=== PATIENT | female | born 1980 | race Caucasian/White ===

== ENCOUNTER 2024-10-20 03:33 | Emergency (ER) | payer SELFPAY ==
[2024-10-20 03:37] VITALS: BP 140/82; PULSE 59; RESP 18; TEMP 36.4; O2SAT 100
--- NOTE | 2024-10-20 06:30 | ED_ITS ---
Documented by User: ELMIRA Florez STDNT 10/20/24 09:29 HPI - General Adult 2 General: Chief complaint: General Medical Stated complaint: NOT FEELING WELL Time Seen by Provider: 10/20/24 05:39 History of Present Illness: Erica a 44-year-old female without significant past medical history presenting today for multiple concerns. She reports dizziness and palpitations that occur intermittently at rest. Patient's initial chief complaint of chest pain when being triaged, however on my encounter with her she denies having any chest pain and states it feels more like her heart is skipping a beat. she recently became homeless about 6 weeks ago and has trouble securing food. She states that she had a cyst on her cervix that drained spontaneously about 3 weeks ago and is continuing to hurt, she wonders if this could be a source of her pain, it is no longer draining. Also states that she has a knot in her lower abdomen over the right side which is now gone, and feels like there is more fullness over her left lower quadrant. Denies vomiting or diarrhea. Endorses subjective fever and chills for several weeks but is not sure if this is secondary to being outside sometimes or not. Associated symptoms: Reports palpitations; Deny chest pain, dyspnea, headache(s) or vomiting Related Data Allergies Allergy/AdvReac Type Severity Reaction Status Date / Time No Known Allergies Allergy Verified 10/20/24 03:44 Review of Systems 2 Const: Reports: fever(s) (subjective) and chills Eyes: Denies: change in vision Card: Reports: palpitations and lightheadedness; Denies: chest pain or swelling of feet/ankles Resp: Denies: dyspnea or productive cough GI: Reports: abdominal pain (suprapubic pain ); Denies: vomiting : Denies: dysuria or urinary urgency Neuro: Denies: headache(s) [facility] ED 2 Female Reproductive History: Date of last menstrual period: 10/07/24 Physical Exam 2 Const: COMMON NORMALS: no acute distress, patient oriented x3 and alert G ENERAL APPEARANCE: cooperative and comfortable ORIENTATION/CONSCIOUSNESS: Yes oriented to person HENMT: COMMON NORMALS: normocephalic and atraumatic HEAD & SCALP: n ormocephalic and atraumatic Eye: COMMON NORMALS: Equal, round and reactive pupils present, EOMs intact bilaterally and conjunctivae normal CONJUNCTIVA: Yes conjunctivae normal P UPIL: Yes Equal, round and reactive pupils present Chest: CHEST: Yes Symmetrical chest wall rise Resp: COMMON NORMALS: clear to auscultation bilaterally EFFORT & INSPECTION: Yes able to speak in complete sentences and No respiratory distress AUSCULTATION: clear to auscultation bilaterally, no crackles and no wheezes Cardio: COMMON NORMALS: regular rate, regular rhythm, S1 normal heart sound present, S2 normal heart sound present and No murmurs present (Cardio) RATE: regular rate RHYTHM: regular rhythm HEART SOUNDS: S1 normal heart sound present and S2 normal heart sound present GI: COMMON NORMALS: Soft to palpation AUSCULTATION: Yes normoactive bowel sounds PALPATION: Yes Soft to palpation and No Tenderness to palpation present (GI) : COMMON NORMALS: Yes no CVA tenderness BLADDER/KIDNEY EXAM: No bladder normal to palpation and Yes no CVA tenderness BIMANUAL EXAM - VAGINA & UTERUS: No bladder normal to palpation Back/Pelvis: COMMON NORMALS: no CVA tenderness Neuro: COMMON NORMALS: patient oriented x3, moves all extremities and no focal motor deficits SENSORIUM/ORIENTATION: Yes alert and Yes oriented to person Course 2 Vital Signs: Vital signs: Vital Signs Temperature 97.6 F 10/20/24 03:37 Pulse Rate 56 L 10/20/24 10:07 Respiratory Rate 18 10/20/24 03:37 Blood Pressure 126/84 10/20/24 10:07 Pulse Oximetry 99 10/20/24 10:07 Oxygen Delivery Me thod Room Air 10/20/24 03:37 [facility] - General Adult Medical Decision Making Erica a 44-year-old female without significant past medical history presenting today for multiple complaints including intermittent palpitations, suprapubic pain, dysuria, and vaginal discharge. Vitals overall unremarkable, afebrile. No leukocytosis, CMP unremarkable. Beta-hCG negative. Chest x-ray unremarkable. EKG without acute abnormalities. Urinalysis appears infectious and was also positive for trichomonas. She was given 1 g Rocephin while here and discharged on Levaquin and Flagyl. Patient amenable to discharge. Discussed return precautions. Encouraged establishing care with a PCP to follow-up. Lab Data 10/20/24 07:41 10/20/24 07:41 Radiology Impressions Chest X-Ray 10/20/24 06:35 IMPRESSION: No acute findings. Laboratory Results WBC 7.52 10^3/uL (3.29-11.43) 10/20/24 07:41 RBC 4.27 10^6/uL (3.85-5.65) 10/20/24 07:41 Hgb 12.80 g/dL (11.27-16.99) 10/20/24 07:41 Hct 39.0 % (36-47) 10/20/24 07:41 MCV 91.3 fl (85-98) 10/20/24 07:41 MCH 30.0 pg (27-33) 10/20/24 07:41 MCHC 32.8 g/dL (30-55) 10/20/24 07:41 RDW 14.6 % (12.1-15.1) 10/20/24 07:41 Plt Count 363 10^3/cmm (157-399) 10/20/24 07:41 MPV 8.9 fL (7.4-10.4) 10/20/24 07:41 Neut % (Auto) 70.4 % 10/20/24 07:41 Lymph % (Auto) 22.9 % 10/20/24 07:41 [place] % (Auto) 4.9 % 10/20/24 07:41 Eos % (Auto) 0.7 % 10/20/24 07:41 Baso % (Auto) 0.8 % 10/20/24 07:41 Neut # (Auto) 5.30 10^3/uL (1.8-7.7) 10/20/24 07:41 Lymph # (Auto) 1.7 10^3/uL (0.8-4.8) 10/20/24 07:41 [place] # (Auto) 0.4 10^3/uL (0.2-0.9) 10/20/24 07:41 Eos # (Auto) 0.1 10^3/uL (0.0-0.8) 10/20/24 07:41 Baso # (Auto) 0.1 10^3/uL (0.0-0.1) 10/20/24 07:41 Nucleated RBC % (auto) 0 % 10/20/24 07:41 Nucleated RBCs # 0.0 /100WBC 10/20/24 07:41 Sodium 136 mmol/L (136-145) 10/20/24 07:41 Potassium 3.9 mmol/L (3.5-5.1) 10/20/24 07:41 Chloride 101 mmol/L (98-107) 10/20/24 07:41 Carbon Dioxide 24 mmol/L (22-29) 10/20/24 07:41 Anion Gap 14.9 (5-19) 10/20/24 07:41 BUN 9 mg/dL (6-20) 10/20/24 07:41 Creatinine 0.6 mg/dL (0.5-0.9) 10/20/24 07:41 GFR Calculation 108.1 mL/min (90-130) 10/20/24 07:41 Glucose 87 mg/dL (65-115) 10/20/24 07:41 Calculated Osmolality 280 mOsm/kg (285-295) L 10/20/24 07:41 Calcium 9.2 mg/dL (8.5-10.5) 10/20/24 07:41 Total Bilirubin 0.2 mg/dL (0.15-1.2) 10/20/24 07:41 AST 14 U/L (0-32) 10/20/24 07:41 ALT 8 U/L (0-33) 10/20/24 07:41 Alkaline Phosphatase 71 U/L (35-105) 10/20/24 07:41 Total Protein 6.6 g/dL (6.6-8.7) 10/20/24 07:41 Albumin 3.9 g/dL (3.5-5.2) 10/20/24 07:41 Globulin 2.7 g/dL (1.3-4.6) 10/20/24 07:41 HCG, Qual Negative (Negative) 10/20/24 06:41 Urine Color Yellow (Yellow) 10/20/24 06:41 Urine Appearance Turbid (CLEAR) A 10/20/24 06:41 Urine pH 6.5 (5-7) 10/20/24 06:41 Ur Specific [place] 1.004 (1.005-1.030) L 10/20/24 06:41 Urine Protein 1+ (Negative) A 10/20/24 06:41 Urine Glucose (UA) Negative (Normal) 10/20/24 06:41 Urine Ketones Negative (Negative) 10/20/24 06:41 Urine Blood 1+ (Negative) A 10/20/24 06:41 Urine Nitrate Negative (Negative) 10/20/24 06:41 Urine Bilirubin Negative (Negative) 10/20/24 06:41 Urine Urobilinogen 0.2 mg/dL (Negative) 10/20/24 06:41 Ur Leukocyte Esterase 2+ (Negative) A 10/20/24 06:41 Urine RBC 6-10 /hpf (0-2) 10/20/24 06:41 Urine WBC >100 /hpf (0-5) H 10/20/24 06:41 Ur Squamous Epith Cells >100 /hpf (0-5) H 10/20/24 06:41 Amorphous Sediment Not Reportable 10/20/24 06:41 Urine Bacteria 4+ /hpf (NONE) H 10/20/24 06:41 Hyaline Casts 13.42 /lpf 10/20/24 06:41 Urine Trichomonas 2+ /hpf H 10/20/24 06:41 C. trachomatis (PCR) Not detected 10/20/24 09:48 N. gonorrhoeae (PCR) Not detected 10/20/24 09:48 Discharge Plan Discharge Patient Disposition: Home Clinical Impression: Infection due to trichomonas, Exposure to STD Condition: Stable Discharge Orders: Discharge ED (Routine); Ordered 10/20/24 Ordered By: Waqas Dinero Discharge Diet: Usual diet Discharge Activity: Increase activity as tolerated Patient Instructions: Opioid Safety, Pain Management Activity Restrictions/Additional Instructions: Thank you for choosing [facility] for your healthcare needs today. It is very important that you follow up as instructed or that you return to the Emergency Department should you have concerns or if your condition changes or worsens in any way. You are seen in the emergency room with complaints of vaginal discharge. On testing you are found to have an infection called trichomonas. You are given antibiotics to treat for this as well as other potential infections cultures are pending on those. Complete the full course of antibiotics. Recommend that you establish with a primary care doctor if you have any worsening or changes symptoms return. Print Language: East Timorese Coding Level of Care Code ED Tie Hacker for Chg Fwd Documented by User: Waqas Dinero DO 10/30/24 05:50 HPI - General Adult 2 General: Chief complaint: General Medical Stated complaint: NOT FEELING WELL Time Seen by Provider: 10/20/24 05:39 Related Data Allergies Allergy/AdvReac Type Severity Reaction Status Date / Time No Known Allergies Allergy Verified 10/20/24 03:44 Course 2 Vital Signs: Vital signs: Vital Signs Temperature 97.6 F 10/20/24 03:37 Pulse Rate 56 L 10/20/24 10:07 Respiratory Rate 18 10/20/24 03:37 Blood Pressure 126/84 10/20/24 10:07 Pulse Oximetry 99 10/20/24 10:07 Oxygen Delivery Me thod Room Air 10/20/24 03:37 MDM - General Adult Medical Decision Making Erica a 44-year-old female without significant past medical history presenting today for multiple complaints including intermittent palpitations, suprapubic pain, dysuria, and vaginal discharge. Vitals overall unremarkable, afebrile. No leukocytosis, CMP unremarkable. Beta-hCG negative. Chest x-ray unremarkable. EKG without acute abnormalities. Urinalysis appears infectious and was also positive for trichomonas. She was given 1 g Rocephin while here and discharged on Levaquin and Flagyl. Patient amenable to discharge. Discussed return precautions. Encouraged establishing care with a PCP to follow-up. Patient seen and evaluated in conjunction with Dr. Lyon. Agree with history assessment and plan. Lab Data 10/20/24 07:41 10/20/24 07:41 Radiology Impressions Chest X-Ray 10/20/24 06:35 IMPRESSION: No acute findings. Laboratory Results WBC 7.52 10^3/uL (3.29-11.43) 10/20/24 07:41 RBC 4.27 10^6/uL (3.85-5.65) 10/20/24 07:41 Hgb 12.80 g/dL (11.27-16.99) 10/20/24 07:41 Hct 39.0 % (36-47) 10/20/24 07:41 MCV 91.3 fl (85-98) 10/20/24 07:41 MCH 30.0 pg (27-33) 10/20/24 07:41 MCHC 32.8 g/dL (30-55) 10/20/24 07:41 RDW 14.6 % (12.1-15.1) 10/20/24 07:41 Plt Count 363 10^3/cmm (157-399) 10/20/24 07:41 MPV 8.9 fL (7.4-10.4) 10/20/24 07:41 Neut % (Auto) 70.4 % 10/20/24 07:41 Lymph % (Auto) 22.9 % 10/20/24 07:41 [place] % (Auto) 4.9 % 10/20/24 07:41 Eos % (Auto) 0.7 % 10/20/24 07:41 Baso % (Auto) 0.8 % 10/20/24 07:41 Neut # (Auto) 5.30 10^3/uL (1.8-7.7) 10/20/24 07:41 Lymph # (Auto) 1.7 10^3/uL (0.8-4.8) 10/20/24 07:41 [place] # (Auto) 0.4 10^3/uL (0.2-0.9) 10/20/24 07:41 Eos # (Auto) 0.1 10^3/uL (0.0-0.8) 10/20/24 07:41 Baso # (Auto) 0.1 10^3/uL (0.0-0.1) 10/20/24 07:41 Nucleated RBC % (auto) 0 % 10/20/24 07:41 Nucleated RBCs # 0.0 /100WBC 10/20/24 07:41 Sodium 136 mmol/L (136-145) 10/20/24 07:41 Potassium 3.9 mmol/L (3.5-5.1) 10/20/24 07:41 Chloride 101 mmol/L (98-107) 10/20/24 07:41 Carbon Dioxide 24 mmol/L (22-29) 10/20/24 07:41 Anion Gap 14.9 (5-19) 10/20/24 07:41 BUN 9 mg/dL (6-20) 10/20/24 07:41 Creatinine 0.6 mg/dL (0.5-0.9) 10/20/24 07:41 GFR Calculation 108.1 mL/min (90-130) 10/20/24 07:41 Glucose 87 mg/dL (65-115) 10/20/24 07:41 Calculated Osmolality 280 mOsm/kg (285-295) L 10/20/24 07:41 Calcium 9.2 mg/dL (8.5-10.5) 10/20/24 07:41 Total Bilirubin 0.2 mg/dL (0.15-1.2) 10/20/24 07:41 AST 14 U/L (0-32) 10/20/24 07:41 ALT 8 U/L (0-33) 10/20/24 07:41 Alkaline Phosphatase 71 U/L (35-105) 10/20/24 07:41 Total Protein 6.6 g/dL (6.6-8.7) 10/20/24 07:41 Albumin 3.9 g/dL (3.5-5.2) 10/20/24 07:41 Globulin 2.7 g/dL (1.3-4.6) 10/20/24 07:41 HCG, Qual Negative (Negative) 10/20/24 06:41 Urine Color Yellow (Yellow) 10/20/24 06:41 Urine Appearance Turbid (CLEAR) A 10/20/24 06:41 Urine pH 6.5 (5-7) 10/20/24 06:41 Ur Specific [place] 1.004 (1.005-1.030) L 10/20/24 06:41 Urine Protein 1+ (Negative) A 10/20/24 06:41 Urine Glucose (UA) Negative (Normal) 10/20/24 06:41 Urine Ketones Negative (Negative) 10/20/24 06:41 Urine Blood 1+ (Negative) A 10/20/24 06:41 Urine Nitrate Negative (Negative) 10/20/24 06:41 Urine Bilirubin Negative (Negative) 10/20/24 06:41 Urine Urobilinogen 0.2 mg/dL (Negative) 10/20/24 06:41 Ur Leukocyte Esterase 2+ (Negative) A 10/20/24 06:41 Urine RBC 6-10 /hpf (0-2) 10/20/24 06:41 Urine WBC >100 /hpf (0-5) H 10/20/24 06:41 Ur Squamous Epith Cells >100 /hpf (0-5) H 10/20/24 06:41 Amorphous Sediment Not Reportable 10/20/24 06:41 Urine Bacteria 4+ /hpf (NONE) H 10/20/24 06:41 Hyaline Casts 13.42 /lpf 10/20/24 06:41 Urine Trichomonas 2+ /hpf H 10/20/24 06:41 C. trachomatis (PCR) Not detected 10/20/24 09:48 N. gonorrhoeae (PCR) Not detected 10/20/24 09:48 All radiology interpretation(s) finalized by discharge Discharge Plan Discharge Patient Disposition: Home Clinical Impression: Infection due to trichomonas, Exposure to STD Condition: Stable Discharge Orders: Discharge ED (Routine); Ordered 10/20/24 Ordered By: Waqas Dinero Discharge Diet: Usual diet Discharge Activity: Increase activity as tolerated Patient Instructions: Opioid Safety, Pain Management Activity Restrictions/Additional Instructions: Thank you for choosing [facility] for your healthcare needs today. It is very important that you follow up as instructed or that you return to the Emergency Department should you have concerns or if your condition changes or worsens in any way. You are seen in the emergency room with complaints of vaginal discharge. On testing you are found to have an infection called trichomonas. You are given antibiotics to treat for this as well as other potential infections cultures are pending on those. Complete the full course of antibiotics. Recommend that you establish with a primary care doctor if you have any worsening or changes symptoms return. Print Language: East Timorese Coding Level of Care Code ED Tie Hacker for Lina Martinez
--- NOTE | 2024-10-20 06:35 | XRR_ITS ---
PROCEDURE INFORMATION: Exam: XR Chest Exam date and time: 10/20/2024 6:42 AM Age: 44 years old Clinical indication: Other: Palpitations TECHNIQUE: Imaging protocol: Radiologic exam of the chest. Views: 1 view. COMPARISON: No relevant prior studies available. FINDINGS: Lungs: Unremarkable. No consolidation. Pleural spaces: Unremarkable. No pleural effusion. No pneumothorax. Heart/Mediastinum: Unremarkable. No cardiomegaly. Bones/joints: Unremarkable. XR/XR chest 1V portable [id number] IMPRESSION: No acute findings.
[2024-10-20 07:08] LABS: Bilirubin Urine Negative (Negative); Blood Urine 1+ (Negative); Glucose Urine UA Negative (Normal); Ketones Urine Negative (Negative); Leukocyte Esterase Urine 2+ (Negative); Nitrate Urine Negative (Negative); Protein Urine 1+ (Negative); Specific Gravity, Urine 1.004 (1.005-1.030); Urine Appearance Turbid (CLEAR); Urine Color Yellow (Yellow); Urobilinogen Urine 0.2 mg/dL (Negative); pH Urine 6.5 (5-7)
[2024-10-20 07:10] LABS: HCG Qualitative Urine. Negative (Negative)
--- NOTE | 2024-10-20 07:17 | ECG_ITS ---
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 Measurements Intervals [place] Rate: 58 P: 5 AL: 129 QRS: 76 QRSD: 92 T: 77 QT: 445 QTc: 439 Interpretive Statements SINUS BRADYCARDIA No previous ECG available for comparison Electronically Signed On 10-23-2024 12:55:18 PLUG GROWER by Ashok Guerrero M.D. [id number]
[2024-10-20 07:50] LABS: Basophils # 0.1 10^3/uL (0.0-0.1); Basophils % 0.8 %; Eosinophils # 0.1 10^3/uL (0.0-0.8); Eosinophils % 0.7 %; Lymphocytes # 1.7 10^3/uL (0.8-4.8); Lymphocytes % 22.9 %; Mean Corpuscular HGB Conc 32.8 g/dL (30-55); Mean Corpuscular Volume 91.3 fl (85-98); Mean Platelet Volume 8.9 fL (7.4-10.4); Monocytes # 0.4 10^3/uL (0.2-0.9); Monocytes % 4.9 %; Neutrophils % 70.4 %; Nucleated Red Blood Cells % 0 %; Platelet Count 363 10^3/cmm (157-399); Red Blood Count 4.27 10^6/uL (3.85-5.65); Red Cell Distribution Width 14.6 % (12.1-15.1); White Blood Count 7.52 10^3/uL (3.29-11.43)
[2024-10-20 07:59] LABS: Add Urine Microscopic? YES; Bacteria Urine 4+ /hpf; Hyaline Casts Urine 13.42 /lpf; WBC Urine >100 /hpf (0-5)
[2024-10-20 08:05] LABS: Squamous Epithelial Cell Urine >100 /hpf (0-5); UA Slide Review UA Slide Review Perf
[2024-10-20 08:05] LABS: Alanine Aminotransferase 8 U/L (0-33); Albumin Level 3.9 g/dL (3.5-5.2); Alkaline Phosphatase 71 U/L (35-105); Anion Gap 14.9 (5-19); Aspartate Amino Transferase 14 U/L (0-32); Blood Urea Nitrogen 9 mg/dL (6-20); Calcium 9.2 mg/dL (8.5-10.5); Carbon Dioxide 24 mmol/L (22-29); Chloride 101 mmol/L (98-107); Creatinine Clr Calc Pharmacy 124.3049; Globulin 2.7 g/dL (1.3-4.6); Glomerular Filtration Rate 108.1 mL/min (90-130); Glucose 87 mg/dL (65-115); Osmolality Calculated 280 mOsm/kg (285-295); Potassium 3.9 mmol/L (3.5-5.1); Sodium 136 mmol/L (136-145); Total Bilirubin 0.2 mg/dL (0.15-1.2); Total Protein 6.6 g/dL (6.6-8.7)
[2024-10-20 08:06] LABS: Add Urine Culture? No; Trichomonas Urine 2+ /hpf
[2024-10-20 08:25] VITALS: PULSE 66; O2SAT 100
[2024-10-20] MEDS: cefTRIAXone 1,000 mg SDV 1000 MG IVP (09:36)
[2024-10-20 10:07] VITALS: BP 126/84; PULSE 56; O2SAT 99
[2024-10-20 11:25] LABS: Chlamydia Trachomatis NOT DETECTED; Neisseria Gonorrhea NOT DETECTED
== END 2024-10-20 10:08 | disposition home or self-care (01) ==
PROVIDERS: Family Medicine; Emergency Provider Physician Assistant Medical
DX: A59.9 Trichomoniasis, unspecified (principal); Z20.2 Contact with and (suspected) exposure to infections with a predominantly sexual mode of transmission
CPT/HCPCS: 36415; 71045; 80053; 81001; 81025; 85025; 87491; 87591; 93005; 96374; 99285; J0696

== ENCOUNTER 2025-05-17 06:20 | Emergency (ER) | payer MEDICAID, SELFPAY ==
--- OUTSIDE RECORDS SUMMARY | 2014-01-26 08:50 | XMS_ITS | Continuity of Care Document ---
Author Organization [facility] Address [address] [place] [address] Phone Care Team Providers Care Probe Operator Name Role Phone Cesar Lou Unavailable Unavailable Advance Directives Directive Yes / No Effective Date File Name No Information Encounters Encounter Description Practice Location Reason(s) For Visit Diagnoses Date Provider Providers Copied on Encounter [facility], [address], [place], [address], [place] tel:[phone] [facility] [place] ENCOUNTER FOR REMOVAL OF INTERNAL FIXATION DEVICE 4 Carmine Guerrero. [address], [place], [id number] . tel:[phone] [facility], [address] [facility], [place], [address], [place] tel:[phone] [facility] [place] Aftercare following surgery of the musculoskeletal system, [facility] 4 Carmine Guerrero. [address], [place], [id number] . tel:[phone] [facility], [address], [place], [address], [place] tel:[phone] [facility] [place] Pain in joint involving ankle and footInfection and inflammatory reaction due to other internal orthopedic device, implant, and graftOther postoperative infection Dec- 4 Carmine Guerrero. [address], [place], [id number] . tel:[phone] Family History Family Member Type Diagnosis Age At Onset No Information Payers Payer name Insurance type Covered alliance party ID Authoriza tion(s) No Information Social History Type Description Quantity Date Captured Comments Sex Female Smoking Status No Information Chief Complaint And Reason For Visit No Information Reason For Referral Reason For Referral No Information History Of Present Illness Encounter Date Complaint History Of Prese nt Illness No Information Functional Status Date Functional Assessmen t No Information Instructions Date Instruction Additional Infor mation No Information Assessments Type Assessment Date No Information Patient Care Teams Name Effective Dates (start - stop) Status Members No Information
[2025-05-17 06:21] VITALS: BP 152/87; PULSE 111; RESP 18; TEMP 36.6; O2SAT 94; BMI 21.5
--- NOTE | 2025-05-17 06:41 | ED.C_ITS ---
HPI - Psych 2 General: Chief Complaint: Psychiatric Symptoms Stated Complaint: wants to discuss meds / mhe Time Seen by Provider: 05/17/25 06:22 History of Present Illness: HPI: Patient with history of allison presenting to the emergency department with manic episode. She states that she has not taken any medications because she is not a chemistry experiment. Does not recall last time she has been taking his medications. Has been incarcerated in the past and states that she has become increasingly stressed since her son's past. She is also trying to make it back to [place] to see her father who is reportedly ill. She requests medications a shot to help me settle down. Patient is concerned about potential STD exposure with malodorous vaginal discharge, no abdominal pain, nausea, vomiting. Patient is unhoused without reliable plaster foreman or community services. REVIEW OF SYSTEMS: 10 systems reviewed and otherwise unrema rkable except for those noted in HPI. PHYSCIAL EXAM: Triage vital signs reviewed Gen: A&O NAD HEENT: NCAT, EOMI, not icteric. External ears normal. No rhinorrhea. Moist mucous membranes. Neck: Supple, full range of motion, no observable masses, No meningeal sign. Lungs: No Respiratory distress. CV: Tachycardia, no edema. Abdomen: Soft, nondistended, No rebound tenderness. MSK: No joint swelling, no redness. Skin: No rashes, petechiae, lesions. Normal color per patient. Neuro: Normal Gait, Grossly intact. Psych: Agitated, looking around the room, pressured speech, no auditory or visual hallucinations, goal-directed thinking and logical thought process PROCEDURES: n/a Related Data Allergies Allergy/AdvReac Type Severity Reaction Status Date / Time No Known Allergies Allergy Verified 10/20/24 03:44 Course 2 Vital Signs: Vital signs: Vital Signs Temperature 97.9 F 05/17/25 06:21 Pulse Rate 111 H 05/17/25 06:21 Respiratory Rate 18 05/17/25 06:21 Blood Pressure 152/87 05/17/25 06:21 Pulse Oximetry 94 05/17/25 06:21 Oxygen Delivery Me thod Room Air 05/17/25 06:21 [facility] - Psych Medical Decision Making MEDICAL DECISION MAKING: Differential diagnoses considered but not limited to: Acute psychosis, acute allison, drug effect/toxidrome, thyroid abnormality, electrolyte derangement, organic medical illness. Vitals nonactionable, demonstrating tachycardia associated with patient's agitation. Given history, examination, and pretest risk factors, he most consistent with acute allison. Patient with insight into her own acute allison requesting intramuscular medications for her allison. I oblige patient's request with intramuscular Haldol, Benadryl, and Ativan. This is not given as a chemical restraint but rather at the behest of the patient who requests intramuscular medications. Will treat the patient empirically with ceftriaxone and prescription for metronidazole and doxycycline for STD concerns. Pending return of labs, EKG, and reassessment after medication. Patient refuses all labs and further evaluation at this time. While she maintains her pressured speech, she denies suicidality, homicidality, or impending unsafe behaviors. Offered further treatment and evaluation including psychiatry consultation for outpatient medicine optimization. Advised on side effects of medications and prescriptions written. She demonstrates components of medical capacity including ability to understand medical problems/concerns, able understand proposed treatment options as well as alternatives, understands risks of refusing further assessment, seems to appreciate foreseeable consequences of the treatment while engaging in discussion, and patient is not acutely psychotic. Advised that she can return anytime for reassessment or additional resources. DISPO: DANIEL Mccartney MD Staff physician, [facility] [place] [phone] Lab Data 05/17/25 06:53 05/17/25 06:53 Laboratory Results WBC 10.71 10^3/uL (3.29-11.43) 05/17/25 06:53 RBC 4.44 10^6/uL (3.85-5.65) 05/17/25 06:53 Hgb 13.80 g/dL (11.27-16.99) 05/17/25 06:53 Hct 39.8 % (36-47) 05/17/25 06:53 MCV 89.6 fl (85-98) 05/17/25 06:53 MCH 31.1 pg (27-33) 05/17/25 06:53 MCHC 34.7 g/dL (30-55) 05/17/25 06:53 RDW 13.6 % (12.1-15.1) 05/17/25 06:53 Plt Count 340 10^3/cmm (157-399) 05/17/25 06:53 MPV 9.6 fL (7.4-10.4) 05/17/25 06:53 Neut % (Auto) 69.5 % 05/17/25 06:53 Lymph % (Auto) 20.4 % 05/17/25 06:53 [place] % (Auto) 8.6 % 05/17/25 06:53 Eos % (Auto) 0.3 % 05/17/25 06:53 Baso % (Auto) 0.8 % 05/17/25 06:53 Neut # (Auto) 7.45 10^3/uL (1.8-7.7) 05/17/25 06:53 Lymph # (Auto) 2.2 10^3/uL (0.8-4.8) 05/17/25 06:53 [place] # (Auto) 0.9 10^3/uL (0.2-0.9) 05/17/25 06:53 Eos # (Auto) 0.0 10^3/uL (0.0-0.8) 05/17/25 06:53 Baso # (Auto) 0.1 10^3/uL (0.0-0.1) 05/17/25 06:53 Nucleated RBC % (auto) 0 % 05/17/25 06:53 Nucleated RBCs # 0.0 /100WBC 05/17/25 06:53 No radiology studies performed this visit Discharge Plan Discharge Clinical Impression: Allison, Concern about STD in female without diagnosis Condition: Stable Prescriptions: New doxycycline hyclate 100 mg tablet 100 mg PO Q12H 7 Days Qty: 14 0RF metronidazole 500 mg tablet 500 mg PO BID 7 Days Qty: 14 0RF Print Language: Nepalese Coding Level of Care Code ED Raw Products Director for Lina Martinez
[2025-05-17] MEDS: LORazepam 1 MG/0.5 ML injection 2 MG IM (06:57)
[2025-05-17] MEDS: diphenhydrAMINE 50 mg/mL SDV 1mL IM (06:57)
[2025-05-17] MEDS: haloperidol inj 5 mg/mL INJ 1 mL IM (06:57)
[2025-05-17] MEDS: cefTRIAXone 500 MG in water for injection-sterile 1 ML IM (06:57)
[2025-05-17 07:00] LABS: Hematocrit 39.8 % (36-47); Hemoglobin 13.80 g/dL (11.27-16.99); Mean Corpuscular HGB Conc 34.7 g/dL (30-55); Mean Corpuscular Hemoglobin 31.1 pg (27-33); Mean Corpuscular Volume 89.6 fl (85-98); Nucleated Red Blood Cells % 0 %; Platelet Count 340 10^3/cmm (157-399); Red Blood Count 4.44 10^6/uL (3.85-5.65); White Blood Count 10.71 10^3/uL (3.29-11.43)
--- NOTE | 2025-05-17 07:24 | PC.NURSE ---
PSA NOTIFIED THIS NURSE PT GETTING ESCALATED AND REQUESTING TO LEAVE. DR. ASIF NOTIFIED. DR. ASIF EXPLAINED RISKS OF LEAVING. PT REQUESTING TO LEAVE. PT REFUSED TO SIGN AMA FORM.
[2025-05-17 07:34] LABS: Alanine Aminotransferase 14 U/L (0-33); Albumin Level 4.6 g/dL (3.5-5.2); Alkaline Phosphatase 77 U/L (35-105); Anion Gap 18.4 (5-19); Aspartate Amino Transferase 29 U/L (0-32); Blood Urea Nitrogen 18 mg/dL (6-20); Calcium 9.4 mg/dL (8.5-10.5); Carbon Dioxide 21 mmol/L (22-29); Chloride 101 mmol/L (98-107); Creatinine Clr Calc Pharmacy 76.6178; Globulin 3.3 g/dL (1.3-4.6); Glucose 106 mg/dL (65-115); Osmolality Calculated 286 mOsm/kg (285-295); Potassium 3.4 mmol/L (3.5-5.1); Sodium 137 mmol/L (136-145); Thyroid Stimulating Hormone 2.76 uIU/mL (0.27-4.20); Total Protein 7.9 g/dL (6.6-8.7)
[2025-05-17 07:37] LABS: Rapid Plasma Reagin Syphilis Nonreactive (Nonreactive)
[2025-05-17 07:40] LABS: HIV 1 & 2 Antigen Non-Reactive (Non-Reactiv)
[2025-05-17 07:41] LABS: Acetaminophen < 5.0 ug/mL (10-30); Alcohol Level < 10 mg/dL (0-10); Salicylate < 0.3 mg/dL (3-10)
== END 2025-05-17 07:30 | disposition left against medical advice (07) ==
PROVIDERS: Emergency Provider General Practice
DX: F30.9 Manic episode, unspecified (principal); Z71.1 Person with feared health complaint in whom no diagnosis is made
CPT/HCPCS: 80053; 80307; 84443; 85025; 86592; 87210; 87806; 96372; 99284; J0696; J1200; J1630; J2060

== ENCOUNTER 2025-09-21 13:24 | Emergency (ER) | payer MEDICAID, SELFPAY ==
[2025-09-21 13:36] VITALS: BP 101/52; PULSE 78; RESP 16; TEMP 36.5; O2SAT 100
--- NOTE | 2025-09-21 13:37 | W.ED.GENADLT ---
HPI - General Adult General: Chief complaint: Anxiety Stated complaint: MHE Time Seen by Provider: 09/21/25 13:30 Source: patient Mode of arrival: ambulatory Limitations: no limitations History of Present Illness: 45-year-old female states she has a history of anxiety states that she is out of all her meds not able to get into she until October. States she typically takes Klonopin and a muscle accident she denies SI or HI. Related Data Previous Rx's ?Medication ?Instructions ?Recorded clonazepam 1 mg tablet (Klonopin) 1 mg PO BID PRN anxiety #20 tabs 09/21/25 tizanidine 6 mg capsule 6 mg PO Q12H PRN muscle spasticity 09/21/25 #14 caps Allergies Allergy/AdvReac Type Severity Reaction Status Date / Time No Known Allergies Allergy Verified 10/20/24 03:44 Review of Systems Psych: Reports: anxiety Physical Exam Const: COMMON NORMALS: no acute distress, patient oriented x3 and healthy appearing HENMT: COMMON NORMALS: normocephalic and atraumatic HEAD & SCALP: normocephalic and atraumatic Neck/C-Spine: COMMON NORMALS: full ROM and supple Chest: COMMONS NORMALS: normal inspection of the chest Resp: COMMON NORMALS: normal respiratory effort Cardio: COMMON NORMALS: regular rate RATE: regular rate Neuro: COMMON NORMALS: patient oriented x3, moves all extremities and no focal motor deficits Psych: COMMON NORMALS: mental status grossly normal, Normal thought process present and cooperative THOUGHT PROCESS: Normal thought process present Skin: COMMON NORMALS: no rashes or lesions noted and no wounds GENERAL SKIN EXAM: no rashes or lesions noted Course Vital Signs: Vital signs: Vital Signs Temperature 97.7 F 09/21/25 13:36 Pulse Rate 78 09/21/25 13:36 Respiratory Rate 16 09/21/25 13:36 Blood Pressure 101/52 09/21/25 13:36 Pulse Oximetry 100 09/21/25 13:36 Oxygen Delivery Me thod Room Air 09/21/25 13:36 MDM - General Adult Medical Decision Making Patient presents here with anxiety patient's not suicidal or homicidal this morning refill her meds did inform I give her 1 prescription of Klonopin here that is all from the ER along with tizanidine she is to follow-up with the crisis center or [facility] she she understands agrees to plan she is to return if she is worsening. Medical Records I reviewed the patient's medical records. All radiology interpretation(s) finalized by discharge Discharge Plan Discharge Patient Disposition: Home Clinical Impression: Anxiety Condition: Stable Prescriptions: New tizanidine 6 mg capsule 6 mg PO Q12H PRN (Reason: muscle spasticity) Qty: 14 0RF clonazepam [Klonopin] 1 mg tablet 1 mg PO BID PRN (Reason: anxiety) Qty: 20 0RF Discharge Orders: Discharge ED (Routine); Ordered 09/21/25 Ordered By: Maria E Figueroa Discharge Diet: Advance as tolerated Discharge Activity: Resume usual activity Patient Instructions: Anxiety (ED) Print Language: Wolof Coding Level of Care Code ED Client Support Manager for Lina Martinez
--- NOTE | 2025-09-21 14:28 | CSC.NCNOTE_ITS ---
[facility] [place] Nurse Contact Note Client was referred from ER to see if we could get her an appointment at [facility] sooner than Oct. Nurse spoke with [facility], appointment scheduled for October 12 at 0800. Appointment was written down and given to client, who agreed to this date and time. Client was also given clothes.
--- NOTE | 2025-09-21 14:28 | W.CSC.NURCN ---
[facility] [place] Nurse Contact Note Nurse Contact Note Client was referred from ER to see if we could get her an appointment at [facility] sooner than Oct. Nurse spoke with [facility], appointment scheduled for October 12 at 0800. Appointment was written down and given to client, who agreed to this date and time. Client was also given clothes.
== END 2025-09-21 13:48 | disposition home or self-care (01) ==
PROVIDERS: Emergency Provider Emergency Medicine
DX: F41.9 Anxiety disorder, unspecified (principal)
CPT/HCPCS: 99283